=== PATIENT | male | born 1975 | race Caucasian/White ===

== ENCOUNTER → 2020-04-27 13:21 | Outpatient (CLI) | payer OTHER, SELFPAY ==
[2020-04-27 14:55] LABS: Add Manual Diff / Slide Review NO; Basophils Absolute Auto 100 /uL (0-100); Basophils Percent Auto 0.7 % (0-2); Eosinophils Absolute Auto 200 /uL (0-450); Eosinophils Percent Auto 2.5 % (2-4); Hematocrit 40.3 % (41-53); Lymphocytes Absolute Auto 1500 /uL (1100-4500); Lymphocytes Percent Auto 21.7 % (25-40); Mean Corpuscular HGB Conc 32.2 % (30-36); Mean Corpuscular Hemoglobin 28.2 PG (26-34); Mean Corpuscular Volume 87.6 fL (80-100); Monocytes Absolute Auto 600 /uL (0-900); Monocytes Percent Auto 8.3 % (3-14); Neutrophils Absolute Auto 4700 /uL (1500-7000); Neutrophils Percent Auto 66.8 % (50-75); Platelet Count 362 X10^3/uL (150-400); Red Blood Cell Count 4.61 X10^6/uL (4.5-5.9); Red Cell Distribution Width 13.3 % (11.6-14.8); White Blood Cell Count 7.1 X10^3/uL (4.5-11.0)
[2020-04-27 15:05] LABS: BUN Creatinine Ratio 18.3 (6-22); Blood Urea Nitrogen 15 mg/dL (9-20); Calcium 9.2 mg/dL (8.4-10.2); Carbon Dioxide 33 mmol/L (22-32); Chloride 103 mmol/L (98-107); Cholesterol 184 mg/dL (140-199); Estimated Glomerular Filt Rate > 60.0 mL/min (>60); Glucose 103 mg/dL (70-100); HDL Cholesterol 39 mg/dL (40-60); HEMOLYSIS < 15 (0-50); LDL Cholesterol Calculated 118 mg/dL (<100); Potassium 4.1 mmol/L (3.4-5.1); Sodium 140 mmol/L (137-145); Triglycerides 135 mg/dL (35-150)
== END ==
PROVIDERS: PCP Family Medicine; Referring Provider Family Medicine; Visit Provider Family Medicine
DX: Z13.220 Encounter for screening for lipoid disorders (principal)
CPT/HCPCS: 36415; 80048; 80061; 85025

== ENCOUNTER → 2020-08-05 08:25 | Outpatient (CLI) | payer OTHER, SELFPAY ==
[2020-08-05 11:55] LABS: COVID19 -Nasal RAPID Negative (Negative)
== END ==
PROVIDERS: PCP Family Medicine; Referring Provider Family Medicine Sleep Medicine; Visit Provider Family Medicine Sleep Medicine
DX: Z20.822 Contact with and (suspected) exposure to COVID-19 (principal); G47.33 Obstructive sleep apnea (adult) (pediatric); G47.19 Other hypersomnia
CPT/HCPCS: 87635; 95810

== ENCOUNTER → 2020-10-14 14:14 | Outpatient (CLI) | payer OTHER, SELFPAY ==
[2020-10-15 20:15] LABS: COVID19 -Nasal RAPID Negative (Negative)
== END ==
PROVIDERS: PCP Family Medicine; Visit Provider Specialist
DX: Z20.822 Contact with and (suspected) exposure to COVID-19 (principal)
CPT/HCPCS: 87635

== ENCOUNTER 2020-10-18 06:39 | Day surgery (SDC) | payer OTHER, SELFPAY ==
[2020-10-11 15:19] VITALS: BMI 32.6
[2020-10-18] VITALS (12 sets, daily range): BP systolic 87–118; BP diastolic 31–80; PULSE 63–80; RESP 10–20; TEMP 35.9–36.6; O2SAT 93–100; BMI 32.6
[2020-10-18] MEDS: LACTATED RINGERS 1,000 ML 42 ML IV (07:31)
--- NOTE | 2020-10-18 07:44 | PM.PREOP ---
Pre-operative Note Interval Note History & Physical reviewed/Exam performed by Physician: Yes Changes to H&P: No
[2020-10-18] MEDS: CEFAZOLIN 1 GM VIAL 2 GM IV (07:56)
--- NOTE | 2020-10-18 08:10 | SUR.OPER ---
Supine on padded OR bed, head on pillow, arms secured on padded arm boards at <90 degrees abduction, legs uncrossed, safety belt at thigh, tape over blanket over lower legs.
[2020-10-18] MEDS: BUPIVACAINE 0.5% (PF) VIAL 30 ML INJ (08:15)
[2020-10-18] MEDS: BACITRACIN OINT 0.9 GM PCKT 1 APPLIC TOP (08:24)
--- NOTE | 2020-10-18 08:28 | PM.OP.1 ---
Operative Date/Time/Diagnoses Date of procedure: 10/18/20 Time of procedure: 08:28 Pre-op diagnosis: Desires sterility Post-op diagnosis: same Procedure & Clinicians Procedure: Vasectomy Same procedure as scheduled: Yes Indications: Desire sterility Surgeon: Sarath Nunes Click Yes if Unassisted: Yes Anesthesia Type: General and Local (1% plain lidocaine.) Operative Notes Findings: Prominent perineal in intrascrotal fat. The individual vas deferens were identified and interrupted in usual fashion. Closure Type: primary Specimen(s): none sent Estimated Blood Loss (mL): 0 Blood products transfused: none Procedure in detail: The patient was positioned in supine and was administered general anesthesia. The abdomen, genitalia, and groin were then prepped and draped in sterile fashion. Local anesthetic was then used to infiltrate the midline scrotal raphae a skin and subcutaneous dartos fascia. Using a scalpel less technique in opening the skin was made at this point. Next, a ringed vas clamp was insinuated in the incision and with the assistance of the opposite hand the left vas was positioned in the jaws of the ringed vas clamp in engaged. Gentle traction was then applied bring the vas up to the incision. A 2nd ringed vas clamp was applied opposite the 1st. The intervening vas sheath was then carefully divided using cautery and blunt technique. Now a loop of as was brought up from within the sheath itself into the operative field. Further blunt and cautery technique were used to clear the vas as of all sheath and connective tissue. Small stainless steel clips were then applied x2 in opposite directions on the testicle side, and a single clip was applied on the patient's side. An intervening segment of approximately 1 centimetre of vas was excised and discarded. The vas stumps were then repositioned in the left hemiscrotum anatomically. Next the same steps and maneuvers were performed on the right side to accomplish bilateral interruption of the vas. The subcutaneous dartos fascia and skin were then reapproximated using 2 interrupted 4-0 chromic. The skin surface was then cleaned and dried. Antibiotic ointment was applied to the incision site and dry sterile gauze was then applied to the scrotum before being fit with a athletic supporter. The patient was then awakened, transferred to [facility], and transferred to PACU in stable condition. Complications: none Post-operative Condition: stable Disposition: PACU Plan for aftercare: Discharge home
--- NOTE | 2020-10-18 08:37 | SUR.PHASEI ---
received to PACU at 0832. Oral airway in place. No further airway assistance required. Report received from Dr Duffy and YARELIS Lozano.
[2020-10-18] MEDS: OXYCODONE IR 5 MG TABLET PO ×2 (08:55→10:19)
[2020-10-18] MEDS: hydrOXYzine 50 MG/ML INJ 25 MG IM (08:55)
[2020-10-18] MEDS: fentaNYL 100 MCG/2 ML INJ IV ×2 (09:15→09:29)
[2020-10-18] MEDS: MEPERIDINE 50 MG/ML INJ 12.5 MG IV (09:16)
--- NOTE | 2020-10-18 10:19 | SUR.PHASEII ---
Ambulated to the bathroom upon transfer to [facility], Stable on feet, Pale colored, denies being dizzy or light headed. Dressing CDI. Voided, getting dressed in the bathroom.
--- NOTE | 2020-10-18 11:50 | SUR.PHASEII ---
1035 TENDER COORDINATOR reported that upon discharge, patient was able to tranfer easily into the car.
== END 2020-10-18 10:27 | disposition home or self-care (01) ==
PROVIDERS: PCP Family Medicine; Referring Provider Specialist; Visit Provider Specialist
PROC: (CPT 55250; principal; 2020-10-18 07:45)
DX: Z30.2 Encounter for sterilization (principal); G47.33 Obstructive sleep apnea (adult) (pediatric); E66.9 Obesity, unspecified; N52.9 Male erectile dysfunction, unspecified; Z68.32 Body mass index [BMI] 32.0-32.9, adult
CPT/HCPCS: 55250; J0690; J1100; J2175; J2250; J2405; J2704; J3010; J3410

== ENCOUNTER → 2021-02-04 10:10 | Outpatient (CLI) | payer OTHER, SELFPAY ==
[2021-02-04 11:02] LABS: Semen Sperm Prescence Post-Vas Absent (ABSENT)
[2021-02-09 14:35] LABS: Testosterone Free 12.62 ng/dL (5.00-21.00); Testosterone Total 394.4 ng/dL (264.0-916.0)
== END ==
PROVIDERS: Specialist; PCP Family Medicine; Referring Provider Family Medicine; Visit Provider Family Medicine
DX: R07.89 Other chest pain (principal); R53.83 Other fatigue; Z98.52 Vasectomy status; N52.1 Erectile dysfunction due to diseases classified elsewhere
CPT/HCPCS: 36415; 84402; 84403; 89321; 93005; 93010

== ENCOUNTER → 2021-04-15 12:03 | Outpatient (CLI) | payer OTHER, SELFPAY ==
[2021-04-15 19:35] LABS: COVID19 -Nasal RAPID Negative (Negative)
== END ==
PROVIDERS: PCP Family Medicine; Visit Provider Nurse Practitioner Family
DX: Z01.812 Encounter for preprocedural laboratory examination (principal); Z20.822 Contact with and (suspected) exposure to COVID-19
CPT/HCPCS: 87635